=== PATIENT | male | born 1990 | race Hispanic/Latino ===

== ENCOUNTER 2017-03-08 07:13 | Emergency (ER) | payer OTHER ==
[2017-03-08 07:38] VITALS: BP 137/73; PULSE 52; RESP 20; TEMP 98.5; O2SAT 98
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
== END 2017-03-08 09:15 | disposition home or self-care (01) ==
LOC: H.ER 07:13
DX: S40.812A Abrasion of left upper arm, initial encounter (principal); V49.40XA Driver injured in collision with unspecified motor vehicles in traffic accident, initial encounter